=== PATIENT | female | born 1995 | race Caucasian/White ===

== ENCOUNTER 2023-10-06 08:40 | Emergency (ER) | payer BC ==
[2023-10-06 10:25] LABS: CORONAVIRUS COVID-19 NAA NEGATIVE (NEGATIVE); INFLUENZA A NAA POSITIVE (NEGATIVE); INFLUENZA B NAA NEGATIVE (NEGATIVE)
== END 2023-10-06 11:06 | disposition home or self-care (01) ==
LOC: MW.ED 08:40
DX: J10.1 Influenza due to other identified influenza virus with other respiratory manifestations (principal); F17.210 Nicotine dependence, cigarettes, uncomplicated; Z20.822 Contact with and (suspected) exposure to COVID-19
CPT/HCPCS: 0240U; 99284; 99283